=== PATIENT | female | born 1955 | race Caucasian/White ===

== ENCOUNTER 2021-01-30 16:49 | Emergency (ER) | payer OTHER ==
[2021-01-30] MEDS ORDERED: VENTOLIN HFA18 GM INH (21:59)
[2021-01-30] MEDS ORDERED: TESSALON PERLE100 M1 PO (21:59)
[2021-01-30] MEDS ORDERED: PHENERGAN25 M1 PO (21:59)
[2021-01-30] MEDS ORDERED: MEDROL 4MG DOSEP4 MG PO (21:59)
== END 2021-01-30 22:21 | disposition home or self-care (01) ==
LOC: FER 16:49
DX: U07.1 COVID-19 (principal); F17.210 Nicotine dependence, cigarettes, uncomplicated; Z88.2 Allergy status to sulfonamides; Z91.041 Radiographic dye allergy status
CPT/HCPCS: M0243; Q0244